=== PATIENT | female | born 1995 | race Asian ===

== ENCOUNTER 2018-08-29 00:49 | Emergency (ER) | payer BC ==
[~2018-08-29] VITALS: Ht 162.6 cm; Wt 55.8 kg
[2018-08-29] MEDS ORDERED: NKM (00:54)
--- NOTE | 2018-08-29 01:00 | NUR ---
ED Nurse Note: Recieved pt from home, awake, alert and oriented x 4, pt here with laceration to left chin, s/p fall, happend 30 min ago, pt states smoked marijuanna and fell, denies k.o, mild bleeding controlled with dry dressing, pt denies any other injuries or complaints. md at bedside.
[2018-08-29 01:20] VITALS: BP 106/76
--- NOTE | 2018-08-29 01:20 | NUR ---
ED Nurse Note: md completed sutures, pt tolerated well, area cleaned and bacitracin ointment applied, pt given f/u info and after care instructions, re-verbalizes s/s to monitor for, denies pain, armband removed, nad noted during d/c to home.
--- NOTE | 2018-08-29 01:21 | Emergency Room Report ---
History of Present Illness General Chief Complaint: Laceration Source: Patient Present Illness HPI Is a 23-year-old female with no past medical issue. She presents with chief complaint of syncope and laceration to the chin. She had some alcohol tonight and went to sleep. She got up to use the restroom and had a syncopal episode. She woke up on the floor with bleeding from her chin. Unknown amount of loss of consciousness. No other pain other than to the left chin area. She sustained a laceration. She said she had syncopal episodes in the past. One time when she was donating blood. Other time when she not eat or drink for a period of time. She denies any chest pain. No palpitation. No nausea no vomiting. No other injury. Allergies: Coded Allergies: No Known Allergies (Unverified , 08/29/18) Patient History Past Medical History: none, see triage record, old chart reviewed Past Surgical History: none Pertinent Family History: none Social History: Denies: smoking Last Menstrual Period: 2014- has an IUD Now: No Immunizations: other Reviewed Nursing Documentation: PMH: Agreed; PSxH: Agreed Nursing Documentation-PMH Past Medical History: No Stated History Review of Systems Eye: Denies: eye pain, blurred vision ENT: Denies: ear pain, nose congestion, throat swelling Respiratory: Denies: cough, shortness of breath Cardiovascular: Denies: chest pain, palpitations Gastrointestinal: Denies: abdominal pain, diarrhea, nausea, vomiting Musculoskeletal: Denies: back pain, joint pain Skin: Denies: rash Neurological: Denies: headache, numbness Endocrine: Denies: increased thirst, increased urine Hematologic/Lymphatic: Denies: easy bruising All Other Systems: negative except mentioned in HPI Physical Exam Vital Signs Date Time Temp Pulse Resp B/P (MAP) Pulse Ox O2 Delivery O2 Flow Rate FiO2 08/29/18 00:50 98.4 86 18 97 Room Air vitals normal Sp02 EP Interpretation: reviewed, normal General Appearance: well appearing, no apparent distress, alert Head: normocephalic, atraumatic, other Eyes: bilateral eye PERRL, bilateral eye EOMI ENT: hearing grossly normal, normal pharynx, other - 4 cm laceration to the left chin. No bony injury. Not through and through. Neck: full range of motion, supple, no meningismus Respiratory: chest non-tender, lungs clear, normal breath sounds Cardiovascular #1: regular rate, rhythm, no murmur Gastrointestinal: normal bowel sounds, non tender, no mass, no organomegaly, no bruit, non-distended Musculoskeletal: back normal, gait/station normal, normal range of motion Psychiatric: mood/affect normal Skin: warm/dry Procedures Laceration/Wound Repair Laceration/Wound Repair : Consent: Verbal Wound Location: face Wound's Depth, Shape: into muscle, linear, contused tissue Wound Length (cm): 4 Wound Explored: clean Irrigated w/ Saline (ccs): 500 Anesthesia: 1% Lidocaine Volume Anesthetic (ccs): 4 Wound Repaired With: sutures Suture Size/Type: 5:0, other - Chromic Number of Sutures: 5 Patient Tolerated: Well Complications: None Medical Decision Making Diagnostic Impression: Primary Impression: Laceration Additional Impression: Syncope Qualified Codes: R55 - Syncope and collapse ER Course Patient with a syncope sustaining a laceration to her chin. Probably vasovagal exacerbated by alcohol. No evidence of ACS, PE, dissection arrhythmia. On exam heart rate is normal. Patient does not want EKG. No other head injury to warrant CT scan. Last Vital Signs Date Time Temp Pulse Resp B/P (MAP) Pulse Ox O2 Delivery O2 Flow Rate FiO2 08/29/18 00:50 98.4 86 18 97 Room Air Status: improved Disposition: HOME, SELF-CARE Condition: Stable Referrals: NOT CHOSEN IPA/,REFERRING (PCP) Patient Instructions: Laceration Care, Adult Additional Instructions: Keep wound clean. Sutures will fall off. If they have not fall off past 7 days , follow-up with your doctor to have them be removed. May take Motrin for pain. Return if symptom worsen. Von De Oliveira MD August 29, 2018 01:21
[2018-08-29] MEDS ORDERED: Bacitracin Oint UD TOPIC ONE (01:30)
[2018-08-29 01:38] VITALS: BP 106/76
== END 2018-08-29 01:20 | disposition home or self-care (01) ==
LOC: EMR 01:06
DX: S01.81XA Laceration without foreign body of other part of head, initial encounter (principal); R55 Syncope and collapse; W19.XXXA Unspecified fall, initial encounter; Y92.9 Unspecified place or not applicable; Z97.5 Presence of (intrauterine) contraceptive device
CPT/HCPCS: 99283